=== PATIENT | male | born 1960 | race Caucasian/White ===

== ENCOUNTER 2019-07-14 17:22 | Emergency (ER) | payer BC ==
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
--- NOTE | 2019-07-15 05:07 | CR ---
DATE OF SERVICE: 07/14/19 CLINICAL DATA: Left wrist pain. 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 There are small osseous densities distal to the ulna, most likely representing small loose bodies. No acute abnormalities. [id number] [facility]
== END 2019-07-14 18:05 | disposition home or self-care (01) ==
LOC: LB.ED 17:22
DX: S69.92XA Unspecified injury of left wrist, hand and finger(s), initial encounter (principal); Z87.891 Personal history of nicotine dependence; X50.1XXA Overexertion from prolonged static or awkward postures, initial encounter
CPT/HCPCS: 73110-LT; 99283-25